=== PATIENT | male | born 1970 | race African-American/Black ===

== ENCOUNTER 2024-10-17 13:41 | Emergency (ER) | payer SELFPAY ==
[2024-10-17] MEDS ORDERED: Ketorolac Tromethamine 30 MG (1 mL) VIAL ONE ×2 (17:44→17:45)
[2024-10-17] MEDS ORDERED: Acetaminophen 500 MG TAB ONE (17:44)
== END 2024-10-17 18:05 | disposition home or self-care (01) ==
LOC: ERS 13:41
DX: S43.402A Unspecified sprain of left shoulder joint, initial encounter (principal); S43.102A Unspecified dislocation of left acromioclavicular joint, initial encounter; M54.42 Lumbago with sciatica, left side; Z55.6 Problems related to health literacy; W23.0XXA Caught, crushed, jammed, or pinched between moving objects, initial encounter
CPT/HCPCS: 72100; 96372; 99283; J1885